=== PATIENT | female | born 1975 | race Caucasian/White ===

== ENCOUNTER → 2021-12-31 | Outpatient (CLI) | payer OTHER, SELFPAY ==
--- NOTE | 2021-12-31 10:44 | EKG12_ITS ---
Test Reason : PREOP Blood Pressure : / mmHG Vent. Rate : 057 BPM Atrial Rate : 057 BPM P-R Int : 162 ms QRS Dur : 092 ms QT Int : 436 ms P-R-T Axes : 059 016 -01 degrees QTc Int : 424 ms Sinus bradycardia Septal infarct , age undetermined Abnormal ECG Confirmed by NEIL TENA, VERONA ([id number]), design editor ALANNAH GAMBOA ([id number]) on 01/01/2022 9:08:31 AM Referred By: NALINI Confirmed By:VERONA TREJO MD
[2021-12-31 12:31] LABS: Hematocrit 39.6 % (37-47); Hemoglobin 13.2 g/dL (12.0-15.0); Mean Corp Hgb Conc 33.3 g/dL (32-36); Mean Corpuscular Hgb 29.9 pg (27.0-32.0); Mean Corpuscular Volume 89.8 fL (81-99); Mean Platelet Vol. 10.1 fl (6.2-12.0); Platelet Count 211 K/mm3 (150-450); RBC Distribution Width CV 13.1 % (11.6-14.6); RBC Distribution Width SD 43.7 fl (35.1-43.9); Red Blood Count 4.41 M/mm3 (4.2-5.4); White Blood Count 3.6 K/mm3 (4.4-11.0)
[2021-12-31 13:08] LABS: Anion Gap 5 (5-15); BUN 7 mg/dL (7-18); BUN/Creat Ratio 11.5 RATIO (10-20); Calcium,Total 9.2 mg/dL (8.5-10.1); Chloride 103 mmol/L (98-107); Creatinine, Serum 0.61 mg/dL (0.55-1.02); EST Glomerular Filtration Rate 111 mL/min (>60); Est Glom Filt Rate - Afr Amer 134 mL/min (>60); Glucose 89 mg/dL (74-106); Potassium 3.6 mmol/L (3.5-5.1); Sodium Level 138 mmol/L (136-145)
== END | disposition home or self-care (01) ==
LOC: PSN 10:39
PROVIDERS: Visit Provider Physician Assistant Surgical
DX: Z01.818 Encounter for other preprocedural examination (principal); Z01.810 Encounter for preprocedural cardiovascular examination
CPT/HCPCS: 36415; 80048; 85027; 93005

== ENCOUNTER 2022-03-08 16:35 | Emergency (ER) | payer OTHER, SELFPAY ==
[2022-03-08 16:38] VITALS: BP 151/83; PULSE 60; RESP 16; TEMP 36.4; O2SAT 99; BMI 34.7
--- NOTE | 2022-03-08 16:51 | EKG12_ITS ---
Test Reason : SYCOPE Blood Pressure : / mmHG Vent. Rate : 062 BPM Atrial Rate : 062 BPM P-R Int : 162 ms QRS Dur : 090 ms QT Int : 440 ms P-R-T Axes : 015 038 -05 degrees QTc Int : 446 ms Normal sinus rhythm Septal infarct , age undetermined Abnormal ECG Confirmed by NEIL TENA, VERONA ([id number]), editor farm journal ALANNAH GAMBOA ([id number]) on 03/10/2022 9:41:28 AM Referred By: Confirmed By:VERONA TREJO MD
--- NOTE | 2022-03-08 16:51 | CT_ITS ---
STUDY: CTA CHEST REASON FOR EXAM: Female, 46 years old. Syncope. Recent orthopedic surgery. Meniscal repair 2 days ago. Syncope today x2 with dizziness. RADIATION DOSAGE (If Supplied By Facility): CTDIvol = ( 22.15 ) mGy, DLP = ( 449.26 ) mGycm TECHNIQUE: The examination was performed with the intravenous administration of IV 100mL Isovue-370. Post-processing of the angiographic images was performed, with multiplanar reformation and 3D reconstruction. Individualized dose optimization techniques were used for this CT. COMPARISON: None. FINDINGS: Normal enhancement of the main pulmonary artery and right and left pulmonary arteries. Normal enhancement of the bilateral peripheral pulmonary arteries. There is no demonstrated pulmonary embolism. Normal thoracic aorta and visualized great vessels. There is no demonstrated aortic dissection. Normal heart and pericardium. Normal mediastinum. Normal hilar regions. Normal visualized trachea and bronchi. The lungs are well expanded. Normal pulmonary parenchyma. Normal pleura. Normal chest wall structures. There are degenerative changes of thoracic spine. Normal visualized upper abdomen. CT/CTA Chest W/WO Contrast IMPRESSION: Essentially normal CTA chest examination, without a demonstrated pulmonary embolism or arterial dissection. Electronically Signed: Javier Davis DO at 18:23 [facility] Reading Location ID and State: [facility] / [place] Tel [phone], Service support ,
--- NOTE | 2022-03-08 16:52 | EX.ED.DYSGE1 ---
HPI History of Present Illness Chief Complaint: Syncope Informant: patient, spouse/S.O. and EMS Onset/Context/Timing Onset: Today Timing: Intermittent (x2) and Lasts (Less than 1 minute) Current Severity: Mild Maximum Severity: Severe Narrative Narrative: Patient had surgery on her right meniscus 3 days ago, states she has been feeling malaised and lightheaded since her surgery. Today was the first day she was allowed to remove the bandages, states she was doing that and thinks that was when she felt more lightheaded which was followed by a syncopal episode. Patient states she felt a little short of breath just prior to that occurring, she did not feel any chest pain. However when she woke up she remembers feeling like her heart was racing for short period of time now it does not feel like that anymore. In route, she had a sharp pain in her left side of her abdomen, that is gone as well, EMS states that she had a second syncopal episode while they were transporting her here, they provided no details of where her heart rate was or any other vital sign or other specifics with regards to her condition during this episode that they apparently witnessed. Patient states that her right knee has been doing well, she has been getting around on it, she has been trying to drink fluids. [facility] Medical History delivery delivered Home Medications hydrocodone-acetaminophen 5-325mg 5mg-325mg 1 tab PO Q4H PRN Pain 03/08/22 [History Last Taken Unknown] meclizine 25 mg tablet 25 mg PO Q8H PRN PRN Dizziness #20 tabs 03/08/22 [Rx Last Taken Unknown] ondansetron 4 mg disintegrating tablet 8 mg PO Q8H PRN PRN Nausea #20 tabs 03/08/22 [Rx Last Taken Unknown] Allergy/AdvReac Type Severity Reaction Status Date / Time No Known Allergies Allergy Verified 03/08/22 16:36 Surgical History H/O lateral meniscus repair of right knee Hx of hernia repair Social History Smoking Status: Never smoker ROS ROS ED Constitutional Constitutional ED: Reports malaise; Denies chills or fever(s) Eyes Eyes: Denies change in vision or diplopia ENT ENT ED: Denies rhinorrhea or sore throat Cardiovascular Cardiovascular: Reports racing heartbeat; Denies chest pain or palpitations Respiratory/Chest Respiratory/Chest: Reports dyspnea; Denies cough Gastrointestinal Gastrointestinal: Reports nausea; Denies abdominal pain, diarrhea or vomiting Genitourinary Genitourinary ED: Denies dysuria or hematuria Musculoskeletal Musculoskeletal: Denies back pain or neck pain Integumentary Denies abscess or rash Neurologic Neurologic: Denies headache(s), paresthesias or weakness Psychiatric Psychiatric: Denies anxiety or suicidal thoughts EXAM Physical Exam Const Vital Signs: 03/08/22 16:38 03/08/22 16:56 03/08/22 18:02 Temperature 97.5 F L Temperature Source Temporal Pulse Rate 60 Pulse Rate [Lying] 62 Pulse Rate [Sitting (for 1 minute prior to obtaining)] 64 Respiratory Rate 16 Respiratory Effort Normal Respiratory Pattern Normal Blood Pressure 151/83 H Blood Pressure [Lying] 127/78 H Blood Pressure [Sitting (for 1 minute prior to obtaining)] 138/110 H Blood Pressure Mean 105 Blood Pressure Mean [Lying] 94 Blood Pressure Mean [Sitting (for 1 minute prior to obtaining)] 119 Pulse Ox 99 Oxygen Delivery Method Room Air Positive well nourished and well developed Constitutional Narrative: Appears malaised, able to converse. No distress. General Appearance ED: well developed and NAD HEENT Reports moist mucous membranes normocephalic and atraumatic Eyes PERRL and EOMs intact bilaterally Neck full ROM and supple Resp normal respiratory effort and clear to auscultation bilaterally Cardio regular rate, regular rhythm and no murmurs Rate: Negative for bradycardia or tachycardic GI non-tender and non-distended Auscultation: normoactive bowel sounds Palpation: soft Back/Spine no CVA tenderness General Back: other FROM Extremity normal to inspection Extremity Narrative: Limited range of motion of right knee, there is some swelling, no erythema, sutures intact operative wounds, no signs of infection or swelling away from the knee itself. General Extremety ED: Yes tenderness; Negative for edema or pulses abnormal General Extremity: Negative for edema or pulses abnormal Neuro oriented x3, CN's II-XII intact bilaterally and no sensory deficits noted Sensorium / Orientation: awake and alert Motor Exam: strength 5/5 throughout Psych mental status grossly normal Skin no rashes or lesions noted Skin Narrative: Postoperative wound anterior right knee with sutures in place no signs of infection or dehiscence MDM MDM MDM Narrative Medical decision making narrative: Prior to work-up after my evaluation of the patient, I did discuss with her surgeon Dr. Arnold, orthopedics. He was aware of the patient being brought to the ER and agreed with me ensuring the patient did not develop a pulmonary embolus, which was considered, although less likely to occur in the first week postoperatively, given that the patient had dyspnea and syncope and did just have orthopedic surgery, CT angiography of the chest was performed. My interpretation of the CT agrees with that of the radiologist. The imaging appears to show no evidence of a pulmonary embolus and the radiologist is in agreement. She also has no occult consolidations. Her EKG is normal, troponin is normal, the rest of her labs are unremarkable except for just a very mild hypokalemia at 3.4 which does not require replacement right now. While in the emergency department even after receiving Zofran, she sat up during orthostatics, which were negative, and felt vertiginous and vomited. She said this is similar to how she felt when she initially passed out. It is unknown if she truly had a syncopal episode or not since she did not have one here in the emergency department, I suspect that her vertigo is peripheral in nature since it is intermittent and triggered with movements, I ordered her a dose of meclizine and I think she is stable for discharge home with meclizine and Zofran to use as needed, follow-up advised. Lab Data Attestation: I reviewed the patient's lab results. Labs: Laboratory Results - last 24 hr 03/08/22 03/08/22 16:54 16:54 WBC 7.8 RBC 4.17 L Hgb 12.1 Hct 38.4 MCV 92.1 MCH 29.0 MCHC 31.5 L RDW Std Deviation 46.2 H RDW Coeff of Marcello 13.4 Plt Count 221 MPV 9.9 Immature Gran % (Auto) 0.400 Neut % (Auto) 62.4 Lymph % (Auto) 26.5 [place] % (Auto) 9.1 Eos % (Auto) 1.2 Baso % (Auto) 0.4 Absolute Neuts (auto) 4.9 Absolute Lymphs (auto) 2.07 Nucleated RBC % 0 Sodium 141 Potassium 3.4 L Chloride 104 Carbon Dioxide 29.0 Anion Gap 8 BUN 8 Creatinine 0.74 Estim Creat Clear Calc 83.66 Est GFR (MDRD) Af Amer 107 Est GFR (MDRD) Non-Af 88 BUN/Creatinine Ratio 10.8 Glucose 117 H Calcium 8.6 Troponin I High Sens 3 Radiography Diagnostic Testing: Clinical Impression(s) from Imaging Studies Chest CTA 03/08/22 16:51 IMPRESSION: Essentially normal CTA chest examination, without a demonstrated pulmonary embolism or arterial dissection. Electronically Signed: Javier Davis DO at 18:23 EST Reading Location ID and State: [address] [place] [address] Tel [phone], Service support , Rhythm Strip Rhythm Strip: Sinus Rhythm Rate: 60 Ectopy: None EKG Initial EKG: Attestation: I personally reviewed and interpreted this EKG as follows: Interpretation: Sinus Rhythm and No Acute Injury Pattern Discharge Plan Triage Chief Complaint: Syncope ED Provider: Harshil Haro Dx/Rx/DC Orders Clinical Impression: Syncope, Episodic peripheral vertigo Prescriptions: New meclizine [meclizine] 25 mg tablet 25 mg PO Q8H PRN PRN (Reason: Dizziness) Qty: 20 0RF ondansetron [ondansetron] 4 mg tablet,disintegrating 8 mg PO Q8H PRN PRN (Reason: Nausea) Qty: 20 0RF No Action hydrocodone-acetaminophen 5-325 mg tablet 1 tab PO Q4H PRN (Reason: Pain) Label Comments: take 1 to 2 tablets by mouth every 6 hours if needed for pain Primary Care Provider: Care Physician,No Primary Referrals: Care Physician,No Primary [Primary Care Provider] - Doctor,Your [Non-Staff] - 3-5 Days if not improving Disposition Disposition: Home, Self Care
[2022-03-08] MEDS: Ondansetron 4 MG/2 ML Vial IV (17:00)
[2022-03-08] MEDS: 0.9% Normal Saline 1,000 ML 999 ML IV (17:00)
[2022-03-08 17:04] LABS: Absolute Lymphocyte Count 2.07 X10^3/uL (0.83-4.51); Absolute Neutrophil Count 4.9 X10^3/uL (2.0-7.7); Basophil# 0.03 X10^3/uL; Basophil% 0.4 % (0-1); Eosinophil# 0.09 X10^3/uL; Eosinophils% 1.2 % (0-5); Hematocrit 38.4 % (37-47); Hemoglobin 12.1 g/dL (12.0-15.0); Lymphocyte # 2.07 X10^3/ul (0.83-4.51); Lymphocyte % 26.5 % (19-41); Mean Corp Hgb Conc 31.5 g/dL (32-36); Mean Corpuscular Volume 92.1 fL (81-99); Mean Platelet Vol. 9.9 fl (6.2-12.0); Monocyte# 0.71 X10^3/uL; Monocyte% 9.1 % (0-10); NRBC Flagged by Analyzer 0 % (0-5); Neutrophil # 4.88 X10^3/uL (2.7-7.7); Neutrophil % 62.4 % (47-70); Platelet Count 221 K/mm3 (150-450); RBC Distribution Width CV 13.4 % (11.6-14.6); RBC Distribution Width SD 46.2 fl (35.1-43.9); Red Blood Count 4.17 M/mm3 (4.2-5.4); White Blood Count 7.8 K/mm3 (4.4-11.0)
[2022-03-08 17:27] LABS: Anion Gap 8 (5-15); BUN 8 mg/dL (7-18); BUN/Creat Ratio 10.8 RATIO (10-20); Calcium,Total 8.6 mg/dL (8.5-10.1); Chloride 104 mmol/L (98-107); Creatinine, Serum 0.74 mg/dL (0.55-1.02); EST Glomerular Filtration Rate 88 mL/min (>60); Est Glom Filt Rate - Afr Amer 107 mL/min (>60); Estimated Creatinine Clearance 83.66 ml/min; Glucose 117 mg/dL (74-106); Potassium 3.4 mmol/L (3.5-5.1); Sodium Level 141 mmol/L (136-145); Troponin-I HS 3 pg/mL (3.0-54.0)
[2022-03-08 18:02] VITALS: BP 127/78; BP 138/110; PULSE 62; PULSE 64
[2022-03-08] MEDS: Meclizine HCl 25 MG Tablet PO (18:39)
[2022-03-08 19:26] VITALS: BP 137/70; PULSE 78; RESP 16; O2SAT 99
== END 2022-03-08 19:28 | disposition home or self-care (01) ==
PROVIDERS: Emergency Provider Emergency Medicine; Visit Provider Emergency Medicine
DX: H81.399 Other peripheral vertigo, unspecified ear (principal); R55 Syncope and collapse
CPT/HCPCS: 71275; 80048; 84484; 85025; 93005; 96374; 99285; Q9967; A4216; J2405